=== PATIENT | male | born 2005 | race American Indian/Alaskan Native ===

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

== ENCOUNTER 2024-07-27 14:17 | Emergency (ER) | payer SELFPAY | END 2024-07-27 14:42 | disposition home or self-care (01) | LOC: DL.ED 14:17 | DX: S23.29XA Dislocation of other parts of thorax, initial encounter (principal); X50.9XXA Other and unspecified overexertion or strenuous movements or postures, initial encounter | CPT/HCPCS: 99284 ==

== ENCOUNTER 2025-07-16 06:23 | Emergency (ER) | payer SELFPAY | END 2025-07-16 06:33 | disposition left against medical advice (07) | LOC: DL.ED 06:23 | DX: Z53.21 Procedure and treatment not carried out due to patient leaving prior to being seen by health care provider (principal) ==